=== PATIENT | female | born 1955 | race Caucasian/White ===

== ENCOUNTER → 2017-07-24 | Outpatient (CLI) | payer OTHER | LOC: FIMAGING 12:27 | PROVIDERS: ATTEND Physician Assistant Medical | DX: S73.192A Other sprain of left hip, initial encounter (principal); M76.02 Gluteal tendinitis, left hip; M76.892 Other specified enthesopathies of left lower limb, excluding foot; M51.36 Other intervertebral disc degeneration, lumbar region ==

== ENCOUNTER → 2017-08-10 | Outpatient (CLI) | payer OTHER | LOC: FIMAGING 10:01 | PROVIDERS: ATTEND Internal Medicine | DX: Z12.31 Encounter for screening mammogram for malignant neoplasm of breast (principal) | CPT/HCPCS: G0202 ==

== ENCOUNTER → 2018-10-03 | Outpatient (CLI) | payer OTHER | LOC: FIMAGING 11:35 | PROVIDERS: ATTEND Family Medicine | DX: Z12.31 Encounter for screening mammogram for malignant neoplasm of breast (principal); R92.2 Inconclusive mammogram; Z80.3 Family history of malignant neoplasm of breast ==